=== PATIENT | male | born 1985 | race African-American/Black ===

== ENCOUNTER 2019-06-09 11:01 | Day surgery (SDC) | payer SELFPAY ==
[~2019-06-09 11:01] MED LIST: DEXAMETHASONE SOD PHOSPHATE INJ 4 MG/1 ML VIAL ONE; KETOROLAC TROMETHAMINE 60 MG/2 ML SDV ONE; ONDANSETRON HCL INJ/PF 4 MG/2 ML SDV ONE
[2019-06-09] MEDS ORDERED: MIDAZOLAM 2 MG/2 ML INJ ONE (12:24)
[2019-06-09] MEDS ORDERED: FENTANYL CITRATE INJ/PF 100 MCG/2 ML AMPUL ONE ×2 (12:24→15:00)
[2019-06-09] MEDS ORDERED: PROPOFOL INJ 200 MG/20 ML VIAL IV ONE (12:25)
[2019-06-09 12:40] LABS: ABSOLUTE MONOCYTES (AUTO) 0.6 10^3/uL (0.1-1.4); ABSOLUTE NEUT (AUTO) 4.4 10^3/uL (1.7-8.2); BASOPHILS % (AUTO) 0.6 % (0-2); EOSINOPHILS % (AUTO) 0.6 % (0-6); HEMATOCRIT 41.9 % (37.9-51.0); LYMPHOCYTES % (AUTO) 28.7 % (13-45); MEAN CORPUSCULAR HGB CONC 33.3 g/dL (32.0-36.0); MEAN CORPUSCULAR VOLUME 84 fl (80-97); MONOCYTES % (AUTO) 8.3 % (3-13); PLATELET COUNT 251 10^3/uL (150-450); RED BLOOD COUNT 4.98 10^6/uL (4.35-5.55); RED CELL DISTRIBUTION WIDTH 13.9 % (11.5-14.0); SEGMENTED NEUTROPHILS % (AUTO) 61.8 % (42-78); TOTAL CELLS COUNTED % (AUTO) 100 %; WHITE BLOOD COUNT 7.1 10^3/uL (4.0-10.5)
[2019-06-09 13:01] LABS: ANION GAP 12 (5-19); BLOOD UREA NITROGEN 15 mg/dL (7-20); CALCIUM 9.6 mg/dL (8.4-10.2); CARBON DIOXIDE 26 mmol/L (22-30); CHLORIDE 103 mmol/L (98-107); GLUCOSE 87 mg/dL (75-110); POTASSIUM 4.3 mmol/L (3.6-5.0)
[2019-06-09] MEDS ORDERED: LIDOCAINE 0.5% INJ-PF (5 MG/ML) 50 ML SDV ONE ×2 (13:46→14:15)
[2019-06-09] MEDS ORDERED: LIDOCAINE 1% INJ-PF (10 MG/ML) 30 ML SDV ONE (13:46)
[2019-06-09] MEDS ORDERED: MEPERIDINE HCL/PF INJ 25 MG/1 ML DISP.SYRIN IV PRN (14:22)
[2019-06-09] MEDS ORDERED: OXYCODONE-ACETAMINOPHEN 5-325 MG TABLET PO PRN ×3 (14:22→15:24)
[2019-06-09] MEDS ORDERED: PROMETHAZINE HCL INJ 25 MG/1 ML VIAL IV PRN (14:22)
[2019-06-09] MEDS ORDERED: MORPHINE SULFATE 10 MG/ML INJ IV PRN ×2 (14:22→15:24)
[2019-06-09] MEDS ORDERED: ONDANSETRON HCL INJ/PF 4 MG/2 ML SDV IV PRN ×2 (14:22→15:24)
[2019-06-09] MEDS ORDERED: FENTANYL CITRATE INJ/PF 100 MCG/2 ML AMPUL IV PRN ×3 (14:22)
[2019-06-09] MEDS ORDERED: DIPHENHYDRAMINE HCL 50 MG/ML VIAL IV PRN (14:22)
[2019-06-09] MEDS ORDERED: CEFAZOLIN INJ 1 GM VIAL ONE (14:43)
[2019-06-09] MEDS ORDERED: BUPIVACAINE HCL 0.5 % INJ/PF 30 ML SDV ONE (14:50)
--- NOTE | 2019-06-09 15:36 | Discharge Summary ---
Discharge Summary (SDC) - Discharge Final Diagnosis: Right hand mass Date of Surgery: 06/09/19 Discharge Date: 06/09/19 Condition: Good Treatment or Instructions: Schedule Follow Up w/ Dr. Venkata Cleaning @ [facility] for Surgery to be seen in 10-14 days or as scheduled [place]: [place]: [place]: May remove dressing on postop day #3, keep incision covered and dry. Ice and elevate May begin finger range of motion attempting to make full fist. Stool softener of choice when on pain medication. USE OF WMPE-NHM-OBTLOBF IBUPROFEN: Ibuprofen (Advil, Nuprin, Medipren, Motrin IB) is a medication for fever and pain control. In addition, it has anti- inflammatory effects which may be beneficial, especially in the treatment of injuries. It's best to take ibuprofen with food. Persons with ulcer disease or allergy to aspirin should notify their physician of this before taking ibuprofen. Ibuprofen can be given every four to six hours, for a total of four doses daily. Age Pain or fever dose Antiinflammatory dose 6-8 yr 200 mg (1 tab) 200 mg (1 tab) 9-11 yr 200 mg (1 tab) 200-400 mg (1-2 tab) 11-14 yr 200-400 mg (1-2 tab) 400 mg (2 tab) 15-adult 400 mg (2 tab) 600 mg (3 tab) ORAL NARCOTIC MEDICATION: You have been given a prescription for pain control. This medication is a narcotic. It's best taken with food, as nausea can result if taken on an empty stomach. Don't operate machinery or drive within six hours of taking this medication. Do not combine this medicine with alcohol, or with any medication which can cause sedation (such as cold tablets or sleeping pills) unless you get permission from the physician. Narcotics tend to cause constipation. If possible, drink plenty of fluids and eat a diet high in fiber and fruits. Please be aware that prescription narcotics also have the potential for abuse. People become addicted to these medications because of the general sense of wellbeing that they induce. This feeling along with a significant reduction in tension, anxiety, and aggression provides a stimulating seductive quality to these drugs. Once your pain is under control, we encourage you to discard your unused narcotics. Prescriptions: Oxycodone HCl/Acetaminophen [Percocet 5-325 mg Tablet] 1 tab PO Q6 PRN #25 tab PRN Reason: Discharge Diet: As Tolerated Respiratory Treatments at Home: Deep Breathing/Coughing, Incentive Spirometer Discharge Activity: No Lifting Over 10 Pounds, No Lifting/Push/Pulling Report the Following to Your Physician Immediately: Fever over 101 Degrees, Unusual Bleeding, Redness, Swelling, Warmth, Increased Soreness
--- NOTE | 2019-06-09 16:19 | Operative Report ---
Operative Report DATE OF SURGERY: 06/09/19 PREOPERATIVE DIAGNOSIS: Right thenar eminence soft tissue mass POSTOPERATIVE DIAGNOSIS: Same OPERATION: Intralesional Biopsy Right Hand SURGEON: ANA MAO ANESTHESIA: GA TISSUE REMOVED OR ALTERED: Soft tissue mass right thenar eminence COMPLICATIONS: None ESTIMATED BLOOD LOSS: Minimal PROCEDURE: Indication for above procedure: 33-year-old male with soft tissue mass of his right thenar eminence. Patient has no history of definitive penetrating trauma but did explain some possible blunt trauma. Patient had MRI demonstrating soft tissue mass along with radiographs. We discussed treatment options given characteristics of mass decision was made to proceed with biopsy to obtain diagnosis prior to definitive treatment. Procedure In Detail: Patient was seen and evaluated in the preoperative holding area. The upper extremity was initialized and marked. Patient received 2g of Ancef IV for bacterial prophylaxis was given after biopsy. Patient was taken back to the operative room where transferred to the operative table and placed under general anesthesia. Once they were adequately anesthetized a nonsterile tourniquet was placed on the upper extremity. A surgical team debriefing was performed ensuring all instrumentation was available, the surgical procedure was discussed with possible concerns reviewed. The upper extremity was prepped with chlorhexidine and alcohol and draped in a sterile fashion. A timeout was done identifying correct patient, procedure and extremity everyone in attendance agree with this and verbalized no concerns. The extremity was elevated the tourniquet was inflated to 250 mmHg. Longitudinal skin incision was made along the thenar eminence. Blunt dissection was performed through the soft tissues. Any peripheral veins were coagulated with bipolar cautery. The muscle of the thenar eminence was gently exposing the soft tissue mass. There was calcification of the soft tissue mass consistent with bone and notable cancellus bone. There was no evidence of fluid within the mass. Soft tissue sections of the mass were sent to pathology for frozen section and in formalin. Wound was copiously irrigated with normal saline. Tourniquet was deflated. Any peripheral bleeding was controlled with bipolar cautery until the wound was dry. Skin was closed interrupted 4-0 nylon suture. Wound was dressed with Xeroform 4 x 4's and 10 cc of 0.5% bupivacaine without epinephrine was injected for postoperative pain control. Sponge counts, instrument counts, needle counts were correct. Patient was then awoken from anesthesia. Transferred from the operating room table to the operating room stretcher. There was no intraoperative complications patient tolerated procedure well stable to PACU. Postoperative plan: Patient follow in the office in 2 weeks for definitive diagnosis. At that point we will determine appropriate steps of treatment.
[2019-06-09 17:57] VITALS: BP 161/107
== END 2019-06-09 17:05 | disposition home or self-care (01) ==
LOC: OROUT 11:01
PROVIDERS: ATTEND Orthopaedic Surgery
DX: D21.11 Benign neoplasm of connective and other soft tissue of right upper limb, including shoulder (principal); M25.841 Other specified joint disorders, right hand; M79.641 Pain in right hand
CPT/HCPCS: 36415; 87070; 87205; 85025; 87075; 80048; 88305 ×2; 88311; 20205; J2250; J3490 ×3; J0690; J1100; J1885; J3010; J2405; J2704; 1810; 88331

== ENCOUNTER 2019-08-15 11:59 | Day surgery (SDC) | payer SELFPAY ==
[2019-08-08 09:34] LABS: ABSOLUTE EOSINOPHILS # (AUTO) 0.1 10^3/uL (0.0-0.6); ABSOLUTE LYMPHOCYTES (AUTO) 1.9 10^3/uL (0.5-4.7); ABSOLUTE MONOCYTES (AUTO) 0.6 10^3/uL (0.1-1.4); ABSOLUTE NEUT (AUTO) 2.7 10^3/uL (1.7-8.2); BASOPHILS % (AUTO) 0.8 % (0-2); EOSINOPHILS % (AUTO) 2.1 % (0-6); HEMATOCRIT 42.8 % (37.9-51.0); HEMOGLOBIN 14.4 g/dL (13.5-17.0); LYMPHOCYTES % (AUTO) 34.6 % (13-45); MEAN CORPUSCULAR HEMOGLOBIN 28.5 pg (27.0-33.4); MEAN CORPUSCULAR HGB CONC 33.8 g/dL (32.0-36.0); MEAN CORPUSCULAR VOLUME 84 fl (80-97); MONOCYTES % (AUTO) 11.7 % (3-13); PLATELET COUNT 213 10^3/uL (150-450); RED BLOOD COUNT 5.06 10^6/uL (4.35-5.55); RED CELL DISTRIBUTION WIDTH 14.6 % (11.5-14.0); SEGMENTED NEUTROPHILS % (AUTO) 50.8 % (42-78); TOTAL CELLS COUNTED % (AUTO) 100 %; WHITE BLOOD COUNT 5.4 10^3/uL (4.0-10.5)
[2019-08-08 09:56] LABS: ANION GAP 12 (5-19); BLOOD UREA NITROGEN 16 mg/dL (7-20); CALCIUM 9.4 mg/dL (8.4-10.2); CARBON DIOXIDE 30 mmol/L (22-30); CHLORIDE 102 mmol/L (98-107); GLUCOSE 100 mg/dL (75-110); POTASSIUM 4.3 mmol/L (3.6-5.0)
[~2019-08-15 11:59] MED LIST changes: +CEFAZOLIN SODIUM 2 GM in DEXTROSE 5%-WATER 100 ML IV PRN; -DEXAMETHASONE SOD PHOSPHATE INJ 4 MG/1 ML VIAL ONE; -KETOROLAC TROMETHAMINE 60 MG/2 ML SDV ONE; -ONDANSETRON HCL INJ/PF 4 MG/2 ML SDV ONE; +RINGERS SOLUTION,LACTATED 1,000 ML IV PRN
[2019-08-15] MEDS ORDERED: BUPIVACAINE HCL 0.5 % INJ/PF 30 ML SDV ONE (14:51)
[2019-08-15] MEDS ORDERED: LIDOCAINE 1% INJ-PF (10 MG/ML) 30 ML SDV ONE (14:51)
[2019-08-15] MEDS ORDERED: FENTANYL CITRATE INJ/PF 100 MCG/2 ML AMPUL ONE (15:37)
[2019-08-15] MEDS ORDERED: MIDAZOLAM 2 MG/2 ML INJ ONE (15:37)
[2019-08-15] MEDS ORDERED: DEXAMETHASONE SOD PHOSPHATE INJ 4 MG/1 ML VIAL ONE (15:38)
[2019-08-15] MEDS ORDERED: PROPOFOL INJ 200 MG/20 ML VIAL IV ONE (15:38)
[2019-08-15] MEDS ORDERED: ONDANSETRON HCL INJ/PF 4 MG/2 ML SDV ONE (15:38)
[2019-08-15] MEDS ORDERED: DIPHENHYDRAMINE HCL 50 MG/ML VIAL IV PRN (16:08)
[2019-08-15] MEDS ORDERED: MEPERIDINE HCL/PF INJ 25 MG/1 ML DISP.SYRIN IV PRN (16:08)
[2019-08-15] MEDS ORDERED: FENTANYL CITRATE INJ/PF 100 MCG/2 ML AMPUL IV PRN ×3 (16:08)
[2019-08-15] MEDS ORDERED: PROMETHAZINE HCL INJ 25 MG/1 ML VIAL IV PRN ×2 (16:08)
[2019-08-15] MEDS ORDERED: MORPHINE SULFATE 10 MG/ML INJ IV PRN (16:08)
[2019-08-15] MEDS ORDERED: MORPHINE SULFATE 10 MG/ML INJ ONE (16:24)
--- NOTE | 2019-08-15 17:22 | Operative Report ---
Operative Report DATE OF SURGERY: 08/15/19 PREOPERATIVE DIAGNOSIS: Deep mass right hand POSTOPERATIVE DIAGNOSIS: Same OPERATION: Marginal excision deep mass right hand SURGEON: ANA MAO ANESTHESIA: GA TISSUE REMOVED OR ALTERED: Mass sent to pathology COMPLICATIONS: None ESTIMATED BLOOD LOSS: Minimal PROCEDURE: Indication for above procedure: 34-year-old male with large mass on his right hand. Mass underwent biopsy demonstrating diagnosis of myositis orifice of a cancer at that point we discussed treatment options including operative versus nonoperative intervention risk and benefits were explained patient verbalized understanding consented for surgical procedure. Procedure In Detail: Patient was seen and evaluated in the preoperative holding area. The upper extremity was initialized and marked. Patient received 2g of Ancef IV for bacterial prophylaxis. Patient was taken back to the operative room where transferred to the operative table and placed under general anesthesia. Once they were adequately anesthetized a nonsterile tourniquet was placed on the upper extremity. A surgical team debriefing was performed ensuring all instrumentation was available, the surgical procedure was discussed with possible concerns reviewed. The upper extremity was prepped with chlorhexidine and alcohol and draped in a sterile fashion. A timeout was done identifying correct patient, procedure and extremity everyone in attendance agree with this and verbalized no concerns. The extremity was elevated the tourniquet was inflated to 250 mmHg. Longitudinal skin incision was made along the thenar eminence. Blunt dissection was performed. Mass was located between the muscle bellies of the APB. The distal ulnar and radial digital nerves were identified and protected. Under direct visualization the mass was meticulous dissected from surrounding soft tissues taking special attention to sharply dissect off bone. Mass emanated from the radial sesamoid which was dissected from. Once adequately freed from soft tissue mass was removed. Once again the common digital nerve was evaluated including the radial and ulnar digital nerves. Deep motor branch remained intact deep within the wound. Wound was copiously irrigated normal saline. Tourniquet was then deflated. Patient had normal skin turgor/peripheral perfusion. Any peripheral bleeding was controlled with bipolar cautery All 2 wound was dry. Deep soft tissue closed with interrupted 3-0 Vicryl suture. Skin was closed with interrupted 4-0 nylon suture. 30 cc of 0.5% bupivicaine without epinephrine was injected for postoperative pain control. Wound was dressed Xeroform 4 x 4's and a soft dressing. Sponge counts, instrument counts, needle counts were correct. Patient was then awoken from anesthesia. Transferred from the operating room table to the operating room stretcher. There was no intraoperative complications patient tolerated procedure well stable to PACU. Postoperative plan: Patient follow the office in 2 weeks for wound check and suture removal. Will be started on indomethacin 25 mg 3 times daily for 5 weeks for heterotopic ossification prophylaxis
[2019-08-15] MEDS ORDERED: HYDROMORPHONE HCL INJ/PF 2 MG/ML AMPULE IV PRN (17:24)
[2019-08-15] MEDS ORDERED: OXYCODONE-ACETAMINOPHEN 5-325 MG TABLET PO PRN (17:24)
[2019-08-15] MEDS ORDERED: ONDANSETRON HCL INJ/PF 4 MG/2 ML SDV IV PRN (17:24)
[2019-08-15] MEDS ORDERED: OXYCODONE-ACETAMINOPHEN 5-325 MG TABLET ONE (17:54)
[2019-08-15 19:49] VITALS: BP 154/103
--- NOTE | 2019-08-22 16:24 | Discharge Summary ---
Discharge Summary (SDC) - Discharge Final Diagnosis: Myositis ossificans right hand Date of Surgery: 08/15/19 Discharge Date: 08/15/19 Condition: Good Treatment or Instructions: Schedule Follow Up w/ Dr. Venkata Cleaning @ [facility] for Surgery to be seen in 10-14 days or as scheduled [place]: [place]: [place]: May remove dressing on postop day #3, keep incision covered and dry. Ice and elevate May begin finger range of motion attempting to make full fist. Stool softener of choice when on pain medication. USE OF EOJF-HUV-NIWELST IBUPROFEN: Ibuprofen (Advil, Nuprin, Medipren, Motrin IB) is a medication for fever and pain control. In addition, it has anti- inflammatory effects which may be beneficial, especially in the treatment of injuries. It's best to take ibuprofen with food. Persons with ulcer disease or allergy to aspirin should notify their physician of this before taking ibuprofen. Ibuprofen can be given every four to six hours, for a total of four doses daily. Age Pain or fever dose Antiinflammatory dose 6-8 yr 200 mg (1 tab) 200 mg (1 tab) 9-11 yr 200 mg (1 tab) 200-400 mg (1-2 tab) 11-14 yr 200-400 mg (1-2 tab) 400 mg (2 tab) 15-adult 400 mg (2 tab) 600 mg (3 tab) ORAL NARCOTIC MEDICATION: You have been given a prescription for pain control. This medication is a narcotic. It's best taken with food, as nausea can result if taken on an empty stomach. Don't operate machinery or drive within six hours of taking this medication. Do not combine this medicine with alcohol, or with any medication which can cause sedation (such as cold tablets or sleeping pills) unless you get permission from the physician. Narcotics tend to cause constipation. If possible, drink plenty of fluids and eat a diet high in fiber and fruits. Please be aware that prescription narcotics also have the potential for abuse. People become addicted to these medications because of the general sense of wellbeing that they induce. This feeling along with a significant reduction in tension, anxiety, and aggression provides a stimulating seductive quality to these drugs. Once your pain is under control, we encourage you to discard your unused narcotics. Prescriptions: Oxycodone HCl/Acetaminophen [Percocet 5-325 mg Tablet] 1 tab PO Q6 PRN #25 tab PRN Reason: Discharge Diet: As Tolerated Respiratory Treatments at Home: Deep Breathing/Coughing, Incentive Spirometer Discharge Activity: No Lifting Over 10 Pounds, No Lifting/Push/Pulling Report the Following to Your Physician Immediately: Fever over 101 Degrees, Unusual Bleeding, Redness, Swelling, Warmth, Increased Soreness
== END 2019-08-15 19:00 | disposition home or self-care (01) ==
LOC: OROUT 11:59
PROVIDERS: ATTEND Orthopaedic Surgery
DX: M61.0 Myositis ossificans traumatica (principal); M79.641 Pain in right hand; M25.841 Other specified joint disorders, right hand; M61.00 Myositis ossificans traumatica, unspecified site
CPT/HCPCS: 36415; 85025; 80048; 88305 ×2; 88311; 01810; 26115; J2250; J3490; J0690; J1100; J3010; J2270; J2405; J7060; J2704; 1810

== ENCOUNTER 2019-09-04 23:53 | Emergency (ER) | payer SELFPAY ==
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
--- NOTE | 2019-09-05 05:27 | RADIOLOGY REPORT (SQ) ---
Right elbow four view on 09/05/2019 at 4:28 AM Clinical indications: Pain after fall COMPARISON: None FINDINGS: Tiny bone island is noted in the capitellum. There are no fractures. There is cortical irregularity of the posterior aspect of the olecranon may be related to old trauma or degenerative. No joint effusion to suggest an occult fracture is noted. Visualized joints are well aligned. IMPRESSION: No acute abnormality.
--- NOTE | 2019-09-05 05:28 | RADIOLOGY REPORT (SQ) ---
Lumbar spine five view on 09/05/2019 at 4:45 AM CLINICAL INDICATION: Low back pain after fall COMPARISON: 02/18/2014 FINDINGS: The lumbar spine is well aligned. Disc space height is well-maintained. There are no fractures. No bony abnormality is noted. IMPRESSION: No acute abnormality.
[2019-09-05] MEDS ORDERED: HYDROCODONE/ACETAMINOPHEN 5-325 MG (6 TAB/ER DISP) PO PRN (05:30)
[2019-09-05 05:57] VITALS: BP 147/101
== END 2019-09-05 06:02 | disposition home or self-care (01) ==
LOC: ER 23:53
DX: S50.01XA Contusion of right elbow, initial encounter (principal); M25.521 Pain in right elbow; M54.5 Low back pain; Y35.813A Legal intervention involving manhandling, suspect injured, initial encounter; Y92.007 Garden or yard of unspecified non-institutional (private) residence as the place of occurrence of the external cause
CPT/HCPCS: 72110; 99284

== ENCOUNTER 2020-05-04 07:34 | Emergency (ER) | payer SELFPAY ==
[2020-05-04 07:45] VITALS: BP 144/96
--- NOTE | 2020-05-04 08:15 | ER Document Report ---
ED General - General Chief Complaint: Chest Congestion Stated Complaint: CHEST CONGESTION/FEVER Time Seen by Provider: 05/04/20 08:15 Primary Care Provider: TYREE JEFFERS MD [ACTIVE STAFF] - Follow up as needed AHMET ODOM [Primary Care Provider] - Follow up as needed TRAVEL OUTSIDE OF THE [place] IN LAST 30 DAYS: No - HPI Notes: 34-year-old male presents to the emergency room today for complaints of shortness of breath, chest pain, nasal congestion, sore throat, chest congest ion, bone pain for the last 6 days but has become progressively worse over the last 3 days. Patient states he has tried Mucinex which is given him some relief. Denies any history of seasonal allergies, is not a smoker, denies any history of asthma or COPD. Patient states does not take any everyday medications, does not have a primary care provider. Denies any Covid exposure any positive Covid test. Eating and drinking without any issues. Patient reports his chest feels tight and feels like he is having pressure, states substernally and sometimes he feels it on both sides, denies any radiation of pain. Denies having a cardiac history, denies a cardiac history with his mother or his father. Denies any fevers or chills, nausea vomiting diarrhea abdominal pain, numbness or tingling of bilateral upper or lower extremities, bowel or bladder dysfunction, saddle anesthesia. Neck pain, headache. - Related Data Allergies/Adverse Reactions: No Known Allergies Allergy (Verified 05/04/20 07:41) Home Medications: mucinex Past Medical History - General Information source: Patient - Social History Smoking Status: Never Smoker Chew tobacco use (# tins/day): No Frequency of alcohol use: daily Drug Abuse: None Family History: Reviewed & Not Pertinent Patient has homicidal ideation: No - Past Medical History Cardiac Medical History: Denies: Hx Coronary Artery Disease, Hx Heart Attack, Hx Hypertension Pulmonary Medical History: Denies: Hx Asthma, Hx Bronchitis, Hx COPD, Hx Pneumonia Neurological Medical History: Denies: Hx Cerebrovascular Accident, Hx Seizures Musculoskeletal Medical History: Denies Hx Arthritis Traumatic Medical History: Reports: Hx Fractures Past Surgical History: Reports: Hx Orthopedic Surgery - right hand, Hx Tonsillectomy - Immunizations Hx Diphtheria, Pertussis, Tetanus Vaccination: Yes Review of Systems - Review of Systems Constitutional: No symptoms reported EENT: See HPI Cardiovascular: See HPI Respiratory: See HPI Gastrointestinal: No symptoms reported Genitourinary: No symptoms reported Male Genitourinary: No symptoms reported Musculoskeletal: No symptoms reported Skin: No symptoms reported Hematologic/Lymphatic: No symptoms reported Neurological/Psychological: No symptoms reported Physical Exam - Vital signs Vitals: Temp Pulse Resp BP Pulse Ox 97.6 F 100 20 144/96 H 100 05/04/20 07:41 05/04/20 07:41 05/04/20 07:41 05/04/20 07:41 05/04/20 07:41 - Notes Notes: MEDICATIONS: I agree with the patient medications as charted by the RN. ALLERGIES: I agree with the allergies as charted by the RN. PAST MEDICAL HISTORY/PAST SURGICAL HISTORY: Reviewed and agree as charted by RN. SOCIAL HISTORY: Reviewed and agree as charted by RN. FAMILY HISTORY: No significant familial comorbid conditions directly related to patient complaint EXAM: Reviewed vital signs as charted by RN. PHYSICAL EXAMINATION:reviewed vital signs by RN GENERAL: Well-appearing, well-nourished and in no acute distress. HEAD: Atraumatic, normocephalic. EYES: Pupils equal round and reactive to light, extraocular movements intact, sclera anicteric, conjunctiva are normal. ENT: Nares patent, oropharynx clear without exudates. Moist mucous membranes. NECK: Normal range of motion, supple without lymphadenopathy LUNGS: Breath sounds clear to auscultation bilaterally and equal. No wheezes rales or rhonchi. HEART: Regular rate and rhythm without murmurs ABDOMEN: Soft, nontender, nondistended abdomen. No guarding, no rebound. No masses appreciated. Musculoskeletal: Normal range of motion, no pitting or edema. No cyanosis. NEUROLOGICAL: Cranial nerves grossly intact. Normal speech, normal gait. Normal sensory, motor exams PSYCH: Normal mood, normal affect. SKIN: Warm, Dry, normal turgor, no rashes or lesions noted. Course - Re-evaluation Re-evalutation: 05/04/20 08:34 Afebrile vital stable no distress. Nurses notes reviewed. CBC negative for leukocytosis or anemia, BMP negative for kidney dysfunction, electrolytes normal, troponin negative, EKG negative for STEMI. Chest x-ray negative for pneumonia, pneumothorax. Influenza negative, strep negative, Covid test is pending. Discussed with patient that he does need to social distance, self quarantine until Covid result is known, wear mask. Advised to follow-up with primary care provider within the next 24 to 48 hours as needed. Advised to return to the emergency room if any of the symptoms become worse. After performing a Medical Screening Examination, I estimate there is LOW risk for RUPTURED ESOPHAGUS, PNEUMOTHORAX, PULMONARY EMBOLISM, ACUTE CORONARY SYNDROME, OR THORACIC AORTIC DISSECTION, thus I consider the discharge disposition reasonable. I have reevaluated this patient multiple times and no significant life threatening changes are noted. The patient and I have discussed the diagnosis and risks, and we agree with discharging home with close follow-up. We also discussed returning to the Emergency Department immediately if new or worsening symptoms occur. We have discussed the symptoms which are most concerning (e.g., bloody sputum, worsening pain or shortness of breath) that necessitate immediate return. - Vital Signs Vital signs: Temp Pulse Resp BP Pulse Ox 97.6 F 100 20 144/96 H 100 05/04/20 07:41 05/04/20 07:41 05/04/20 07:41 05/04/20 07:41 05/04/20 07:41 - Laboratory Result Diagrams: 05/04/20 08:45 05/04/20 08:45 Laboratory results interpreted by me: 05/04/20 05/04/20 08:45 08:45 RBC 5.58 H Calcium 10.4 H - EKG Interpretation by Id EKG shows normal: Sinus rhythm Rate: Normal Rhythm: NSR Additional EKG results interpreted by me: 05/04/20 08:50 Heart rate 82. P axis 41, QRS axis 49, T axis -13. No prior EKG to compare to. No STEMI. Interpreted by Dr. Greg Velez, ER supervising physician Discharge - Discharge Clinical Impression: Cough, Person under investigation for COVID-19 Condition: Stable Disposition: HOME, SELF-CARE Instructions: COVID-19 Guidance for Persons Under Investigation Additional Instructions: Your chest x-ray today was negative for any pneumonia, your influenza was negative, your labs are normal. Covid test is pending, advised to self quarantine, wear your mask when around anyone else, social distance and wash your hands prior to eating and when soiled. They will department will call you with your Covid result. Please take azithromycin as directed with food. Please use your rescue inhaler as needed. Follow-up with your primary care provider within the next 24 to 48 hours Return immediately for any new or worsening symptoms. Follow up with primary care provider, call tomorrow to make followup appointment. Prescriptions: Albuterol Sulfate [Proair Respiclick] 90 mcg IH Q4HP PRN #1 [email or web address] PRN Reason: Azithromycin [Zithromax] 250 mg PO DAILY 5 Days #6 tablet Forms: Return to Work Referrals: AHMET ODOM [Primary Care Provider] - Follow up as needed TYREE JEFFERS MD [ACTIVE STAFF] - Follow up as needed
--- NOTE | 2020-05-04 08:47 | RADIOLOGY REPORT (SQ) ---
EXAM DESCRIPTION: CHEST SINGLE VIEW IMAGES COMPLETED DATE/TIME: 05/04/2020 8:32 am REASON FOR STUDY: cough/congestion x 3 days COMPARISON: None. EXAM PARAMETERS: NUMBER OF VIEWS: One view. TECHNIQUE: Single frontal radiographic view of the chest acquired. RADIATION DOSE: NA LIMITATIONS: None. FINDINGS: LUNGS AND PLEURA: No opacities, masses or pneumothorax. No pleural effusion. MEDIASTINUM AND HILAR STRUCTURES: No masses. Contour normal. HEART AND VASCULAR STRUCTURES: Heart normal in size. Normal vasculature. BONES: No acute findings. HARDWARE: None in the chest. OTHER: No other significant finding. IMPRESSION: NO ACUTE RADIOGRAPHIC FINDING IN THE CHEST. TECHNICAL DOCUMENTATION: JOB ID: [id number] 2010 [employer]- All Rights Reserved Reading location - IP/workstation name: [email or web address]
[2020-05-04 08:55] LABS: ABSOLUTE BASOPHILS # (AUTO) 0.1 10^3/uL (0.0-0.2); ABSOLUTE EOSINOPHILS # (AUTO) 0.1 10^3/uL (0.0-0.6); ABSOLUTE MONOCYTES (AUTO) 0.8 10^3/uL (0.1-1.4); ABSOLUTE NEUT (AUTO) 5.7 10^3/uL (1.7-8.2); BASOPHILS % (AUTO) 0.7 % (0-2); EOSINOPHILS % (AUTO) 0.9 % (0-6); HEMATOCRIT 47.5 % (37.9-51.0); HEMOGLOBIN 15.8 g/dL (13.5-17.0); LYMPHOCYTES % (AUTO) 23.6 % (13-45); MEAN CORPUSCULAR HEMOGLOBIN 28.3 pg (27.0-33.4); MEAN CORPUSCULAR HGB CONC 33.3 g/dL (32.0-36.0); MEAN CORPUSCULAR VOLUME 85 fl (80-97); MONOCYTES % (AUTO) 9.3 % (3-13); PLATELET COUNT 234 10^3/uL (150-450); RED BLOOD COUNT 5.58 10^6/uL (4.35-5.55); SEGMENTED NEUTROPHILS % (AUTO) 65.5 % (42-78); TOTAL CELLS COUNTED % (AUTO) 100 %; WHITE BLOOD COUNT 8.7 10^3/uL (4.0-10.5)
[2020-05-04 09:18] LABS: ANION GAP 12 (5-19); BLOOD UREA NITROGEN 11 mg/dL (7-20); CALCIUM 10.4 mg/dL (8.4-10.2); CARBON DIOXIDE 26 mmol/L (22-30); CHLORIDE 104 mmol/L (98-107); GLUCOSE 108 mg/dL (75-110); POTASSIUM 4.4 mmol/L (3.6-5.0)
[2020-05-04 09:44] LABS: A TYPE INFLUENZA AG NEGATIVE (NEGATIVE); B INFLUENZA AG NEGATIVE (NEGATIVE)
--- NOTE | 2020-05-05 18:11 | EKG REPORT ---
SEVERITY:- ABNORMAL ECG - SINUS RHYTHM NONSPECIFIC T ABNORMALITIES, DIFFUSE LEADS ST ELEVATION SUGGESTS PERICARDITIS : Confirmed by: Jignesh West MD 05-May-2020 18:11:18
== END 2020-05-04 10:50 | disposition home or self-care (01) ==
LOC: ER 07:34
DX: R05 Cough (principal); R50.9 Fever, unspecified; R09.81 Nasal congestion; Z20.828 Contact with and (suspected) exposure to other viral communicable diseases
CPT/HCPCS: 93005; 99285; 36415; 87070; 87880; 85025; 87635; 80048; 84484; 87804; 71045; 93010; C9803